=== PATIENT | female | born 1980 | race Caucasian/White ===

== ENCOUNTER 2018-08-27 04:12 | Emergency (ER) | payer MEDICAID ==
[~2018-08-27] VITALS: Ht 157.5 cm; Wt 78.5 kg
[2018-08-27 04:14] VITALS: BP 131/77
--- NOTE | 2018-08-27 05:06 | NUR ---
PT D/C WITH D/C SUMMARY AND SCRIPTS. ALL QUESTIONS ANSWERED. PT AMBULATED TO REGISTRATION DESK WITH STEADY GAIT FOR D/C HOME.
== END 2018-08-27 05:08 ==
LOC: ED 04:54
DX: L02.415 Cutaneous abscess of right lower limb (principal); F17.210 Nicotine dependence, cigarettes, uncomplicated; J45.909 Unspecified asthma, uncomplicated
CPT/HCPCS: 99283

== ENCOUNTER 2018-12-04 19:16 | Emergency (ER) | payer MEDICAID ==
[~2018-12-04] VITALS: Ht 157.5 cm; Wt 71.4 kg
--- NOTE | 2018-12-04 19:34 | NUR ---
PT DENIES SUICIDE AND DENIES HOMICIDE.
[2018-12-04 19:48] LABS: BASOPHILS # (AUTO) 0.04 x10^3/uL (0-0.1); BASOPHILS % (AUTO) 0 % (0-1); EOSINOPHILS % (AUTO) 2 % (1-7); LYMPHOCYTES # (AUTO) 2.84 x10^3/uL (1-3.4); LYMPHOCYTES % (AUTO) 25 % (22-44); MD NO; MEAN CORPUSCULAR HEMOGLOBIN 30.7 pg (27.0-34.8); MEAN CORPUSCULAR HGB CONC 33.1 g/dL (32.4-35.8); MEAN CORPUSCULAR VOLUME 92.8 fL (80-100); MEAN PLATELET VOLUME 7.9 fL (7.4-10.4); MONOCYTES # (AUTO) 0.66 x10^3/uL (0.2-0.8); MONOCYTES % (AUTO) 6 % (2-9); NEUTROPHILS # (AUTO) 7.57 x10^3/uL (1.8-6.8); NEUTROPHILS % (AUTO) 67 % (42-75); PLATELET COUNT 359 x10^3/uL (130-400); RED BLOOD COUNT 4.87 x10^6/uL (3.82-5.3); RED CELL DISTRIBUTION WIDTH 12.9 % (9.6-15.2)
[2018-12-04 19:59] LABS: ALBUMIN 4.4 g/dL (3.4-5.0); ANION GAP 7 mmol/L (5-15); CALCIUM 9.9 mg/dL (8.5-10.1); CHLORIDE 108 mmol/L (98-107); CREATININE 0.88 mg/dL (0.55-1.02)
--- NOTE | 2018-12-04 20:00 | NUR ---
[employer]: PT TO ROOM FROM [facility]
--- NOTE | 2018-12-04 20:34 | NUR ---
DR. RODRIGEZ AT TO EVAL PT. AND DISCUSS POC.
--- NOTE | 2018-12-04 21:07 | NUR ---
[place] in EDM - 12/04/[address] at [address] DENNY AT TO EVAL PT AND DISCUSS POC WITH PT. AND FATHER.
--- NOTE | 2018-12-04 21:08 | NUR ---
PREVIOUS NOTE ENTERED ON WRONG PT.
[2018-12-04 21:09] LABS: FREE T4 (FREE THYROXINE) 0.92 ng/dL (0.76-1.46); TROPONIN I < 0.015 ng/mL (0.000-0.045)
[2018-12-04] MEDS ORDERED: IBUPROFEN 600 MG TABLET PO ONE (22:00)
[2018-12-04] MEDS ORDERED: IBUPROFEN 600 MG TABLET ONE (22:02)
[2018-12-04 22:06] VITALS: BP 103/60
== END 2018-12-04 22:09 | disposition home or self-care (01) ==
LOC: ED 22:03
DX: F33.9 Major depressive disorder, recurrent, unspecified (principal); G43.C1 Periodic headache syndromes in child or adult, intractable; R42 Dizziness and giddiness
CPT/HCPCS: 36415; 71045; 80048; 82040; 84439; 84443; 84481; 84484; 85025; 93005; 99284

== ENCOUNTER 2019-12-14 12:52 | Emergency (ER) | payer MEDICAID ==
[~2019-12-14] VITALS: Ht 157.5 cm; Wt 76.7 kg
[2019-12-14 12:54] VITALS: BP 126/76
--- NOTE | 2019-12-14 13:59 | NUR ---
Patient/Caregiver given discharge instructions and they have confirmed that they understand the instructions. Patient ambulatory with steady gait. PT LEFT WITH ALL PERSONAL BELONGINGS.
== END 2019-12-14 14:00 | disposition home or self-care (01) ==
LOC: ED 13:54
DX: L03.116 Cellulitis of left lower limb (principal); L03.115 Cellulitis of right lower limb; Z88.2 Allergy status to sulfonamides; Z88.0 Allergy status to penicillin; Z88.5 Allergy status to narcotic agent; Z88.8 Allergy status to other drugs, medicaments and biological substances; Z90.89 Acquired absence of other organs; Z90.49 Acquired absence of other specified parts of digestive tract; Z79.899 Other long term (current) drug therapy
CPT/HCPCS: 99283